=== PATIENT | female | born 1965 | race African-American/Black ===

== ENCOUNTER 2022-12-17 14:38 | Emergency (ER) | payer MEDICAID ==
[~2022-12-17] VITALS: Ht 157.5 cm; Wt 102.0 kg
[2022-12-17 15:05] VITALS: O2SAT 98
[2022-12-17] MEDS ORDERED: HYDROCODONE/ACETAMINOPHEN 5/325MG TABLET PO NR (15:43)
[2022-12-17] MEDS ORDERED: CLIN-194 MT (15:54)
[2022-12-17 16:45] VITALS: BP 150/91; PULSE 82; RESP 14; TEMP 98
== END 2022-12-17 16:47 | disposition home or self-care (01) ==
LOC: ER 14:57
DX: K04.7 Periapical abscess without sinus (principal); I10 Essential (primary) hypertension; Z88.0 Allergy status to penicillin; Z90.710 Acquired absence of both cervix and uterus
CPT/HCPCS: 99283

== ENCOUNTER 2024-02-06 16:06 | Emergency (ER) | payer MEDICAID ==
[~2024-02-06] VITALS: Ht 157.5 cm; Wt 98.0 kg
[~2024-02-06 16:06] MED LIST: CLIN-194 MT
[2024-02-06 16:07] VITALS: O2SAT 96
[2024-02-06 16:26] VITALS: BP 150/88; PULSE 90; RESP 16; TEMP 98.6; O2SAT 99
[2024-02-07] MEDS ORDERED: ALBU90AE INH (00:16)
[2024-02-07] MEDS ORDERED: P50 MT (00:16)
== END 2024-02-07 00:42 | disposition home or self-care (01) ==
LOC: ER 16:06
DX: J40 Bronchitis, not specified as acute or chronic (principal); I10 Essential (primary) hypertension; Z88.0 Allergy status to penicillin; Z90.710 Acquired absence of both cervix and uterus; Z20.822 Contact with and (suspected) exposure to COVID-19
CPT/HCPCS: 71045; 87426; 87804; 99284